=== PATIENT | female | born 1990 | race Two or more races ===

== ENCOUNTER 2018-09-09 09:51 | Emergency (ER) | payer MEDICAID ==
[2018-09-09] MEDS: ACETAMINOPHEN 500 MG TAB PO (10:36)
[2018-09-09] MEDS: ONDANSETRON (ODT) 4 MG TAB ODT (10:36)
== END 2018-09-09 11:53 | disposition home or self-care (01) ==
LOC: FTE 09:51
DX: R11.10 Vomiting, unspecified (principal)
CPT/HCPCS: 99283; Z7502